=== PATIENT | male | born 1970 | race Caucasian/White ===

== ENCOUNTER 2016-09-07 21:39 | Emergency (ER) | payer MEDICARE ==
[~2016-09-07] VITALS: Ht 365.8 cm; Wt 92.1 kg
[~2016-09-07 21:39] MED LIST: ASPI325T8 PO; CARV20CP PO; DIAZ10TA PO; FLUT50DI; HYDR-2766 PO; ISOS30TA PO; LIDO700A4; METH10TA PO; MINO50CA21 PO; NITR0.4T; OMEG1CAP6; OMEP40CA5 PO; PROM25TA10; TEST200V4 IM; TOPI50TA38 PO; VENL75CA6 PO
[2016-09-07] MEDS ORDERED: 0.9 % SODIUM CHLORIDE 10 ML DISP.SYRIN. IV PRN (21:45)
[2016-09-07 22:10] LABS: BASO # 0.1 x10^3/uL (0.0-0.2); BASO % 1 % (0-3); EOS # 0.1 x10^3/uL (0.0-0.7); EOS % 1 % (0-3); HEMATOCRIT 45.9 % (39.0-53.0); HEMOGLOBIN 15.3 g/dL (13.0-17.5); LYMPH # 3.3 x10^3/uL (1.0-4.8); LYMPH % 27 % (24-48); MEAN CORPUSCULAR HEMOGLOBIN 30 pg (25-35); MEAN CORPUSCULAR HGB CONC 34 g/dL (31-37); MEAN CORPUSCULAR VOLUME 89 fL (79-100); MONO # 0.9 x10^3/uL (0.0-1.1); MONO % 7 % (0-9); NEUT % 64 % (31-73); PLATELET COUNT 312 x10^3/uL (140-400); RED BLOOD COUNT 5.14 x10^6/uL (4.30-5.70); WHITE BLOOD COUNT 12.4 x10^3/uL (4.0-11.0)
[2016-09-07] MEDS ORDERED: NITROGLYCERIN OINT 1 GM PACKET. TP ONE (22:15)
[2016-09-07] MEDS ORDERED: MORPHINE SULFATE 2 MG/ML DISP.SYRIN. IV ONE (22:15)
[2016-09-07] MEDS ORDERED: ASPIRIN 325 MG TABLET PO ONE (22:15)
--- NOTE | 2016-09-07 22:18 | PHYS DOC ---
Past History Past Medical History: CAD, High Cholesterol, Heart Disease, Hypertension, Other Additional Past Medical Histor: chronic back pain, non-hodgkin's lymphoma (dx 1997-remission since 1998) Past Surgical History: Tonsillectomy Additional Past Surgical Histo: cardiac cath, neck surgery; lymph node dissection Smoking: Cigarettes Social History Narrative: Adult General Chief Complaint Chief Complaint: CHEST PAIN HPI HPI Patient is a 46 year old male who presents with chest pain. 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 He became sweaty. It's sharp , burning, pressure that was a 10. He drove himself here. Pain is now an 8. No shortness of air. No nausea or vomiting. It is consistent with prior heart pain. He hasn't taken nitroglycerin for least a year. He continues to smoke tobacco, has hyperlipidemia but is able to take a statin due to an allergy. Took his 81 mg aspirin today. He was last seen by Dr. Ruggiero's answering service agent several months ago and has appointment this Thursday in the office. Review of Systems Review of Systems Constitutional: Denies fever or chills Eyes: Denies change in visual acuity, redness, or eye pain HENT: Denies nasal congestion or sore throat Respiratory: Denies cough or shortness of breath Cardiovascular: chest pain-see HPI GI: Denies abdominal pain, nausea, vomiting, bloody stools or diarrhea : Denies dysuria or hematuria Musculoskeletal: Denies back pain or joint pain Integument: Denies rash or skin lesions; diaphoretic Neurologic: Denies headache, focal weakness or sensory changes Endocrine: Denies polyuria or polydipsia Family History Family History Grandfather with heart disease Current Medications Current Medications Current Medications Medications (Trade) Dose Ordered Sig/Dori Start Time Stop Time Status Last Admin Dose Admin Aspirin (Shankar Aspirin) 325 mg 1X ONCE 09/07/16 22:15 09/07/16 22:16 Morphine Sulfate (Morphine 2mg Syringe) 2 mg 1X ONCE 09/07/16 22:15 09/07/16 22:16 Nitroglycerin (Nitro-Bid Oint) 1 inch 1X ONCE 09/07/16 22:15 09/07/16 22:16 Sodium Chloride (Normal Saline Flush) 10 ml QSHIFT PRN 09/07/16 21:45 Allergies Allergies Allergies Coded Allergies Type Severity Reaction Last Updated Verified Ycaures-Cjw-Fek Reductase Inhibitor Allergy Intermediate MUSCLE PAIN 09/07/16 Yes Physical Exam Physical Exam Constitutional: Well developed, well nourished, diaphoretic and anxious HENT: Normocephalic, atraumatic, bilateral external ears normal, oropharynx moist, no oral exudates, nose normal. Eyes: PERRLA, EOMI, conjunctiva normal, no discharge. Neck: Normal range of motion, no tenderness, supple, no stridor. Cardiovascular:Heart rate regular rhythm, tachycardic, no murmur Lungs & Thorax: Bilateral breath sounds clear to auscultation Abdomen: Bowel sounds normal, soft, no tenderness, no masses, no pulsatile masses. Skin: Warm, dry, no erythema, no rash. Back: No tenderness, no CVA tenderness. Extremities: No tenderness, no cyanosis, no clubbing, ROM intact, no edema. Neurologic: Alert and oriented X 3, normal motor function, normal sensory function, no focal deficits noted. Psychologic: Affect normal, judgement normal, mood normal. Current Patient Data Vital Signs BP 141/100; P 120; sat 97% room air 2210 PM: BP 120/77, sat 94% and P 94 after Nitropaste and Morphine Vital Signs Date Time Temp Pulse Resp B/P (MAP) Pulse Ox O2 Delivery O2 Flow Rate FiO2 09/07/16 22:06 110 141/100 09/07/16 22:05 20 97 Room Air 09/07/16 21:45 98.6 Lab Results Laboratory Tests Test 09/07/16 21:55 Bedside Troponin I 0.00 ng/ml Current Medications Medications (Trade) Dose Ordered Sig/Dori Route PRN Reason Start Time Stop Time Status Last Admin Dose Admin Aspirin (Shankar Aspirin) 325 mg 1X ONCE PO 09/07/16 22:15 09/07/16 22:16 Morphine Sulfate (Morphine 2mg Syringe) 2 mg 1X ONCE IV 09/07/16 22:15 09/07/16 22:16 Sodium Chloride (Normal Saline Flush) 10 ml QSHIFT PRN IV AFTER MEDS AND BLOOD DRAWS 09/07/16 21:45 Nitroglycerin (Nitro-Bid Oint) 1 inch 1X ONCE TP 09/07/16 22:15 09/07/16 22:16 Laboratory Tests Test 09/07/16 21:55 White Blood Count 12.4 x10^3/uL Red Blood Count 5.14 x10^6/uL Hemoglobin 15.3 g/dL Hematocrit 45.9 % Mean Corpuscular Volume 89 fL Mean Corpuscular Hemoglobin 30 pg Mean Corpuscular Hemoglobin Concent 34 g/dL Red Cell Distribution Width 15.0 % Platelet Count 312 x10^3/uL Neutrophils (%) (Auto) 64 % Lymphocytes (%) (Auto) 27 % Monocytes (%) (Auto) 7 % Eosinophils (%) (Auto) 1 % Basophils (%) (Auto) 1 % Neutrophils # (Auto) 8.0 x10^3uL Lymphocytes # (Auto) 3.3 x10^3/uL Monocytes # (Auto) 0.9 x10^3/uL Eosinophils # (Auto) 0.1 x10^3/uL Basophils # (Auto) 0.1 x10^3/uL Prothrombin Time 10.1 SEC Prothromb Time International Ratio 1.0 Activated Partial Thromboplast Time 24 SEC Sodium Level 144 mmol/L Potassium Level 3.6 mmol/L Chloride Level 104 mmol/L Carbon Dioxide Level 32 mmol/L Anion Gap 8 Blood Urea Nitrogen 7 mg/dL Creatinine 1.0 mg/dL Estimated GFR (Cockcroft-Gault) 80.4 BUN/Creatinine Ratio 7 Glucose Level 129 mg/dL Calcium Level 8.6 mg/dL Magnesium Level 1.8 mg/dL Total Bilirubin 0.4 mg/dL Aspartate Amino Transf (AST/SGOT) 17 U/L Alanine Aminotransferase (ALT/SGPT) 19 U/L Alkaline Phosphatase 65 U/L Creatine Kinase 110 U/L Creatine Kinase MB (Mass) 0.9 ng/mL Creatine Kinase MB Relative Index 0.8 % Bedside Troponin I 0.00 ng/ml Troponin I Quantitative < 0.017 ng/mL Total Protein 7.0 g/dL Albumin 3.6 g/dL Albumin/Globulin Ratio 1.1 Current Medications Medications (Trade) Dose Ordered Sig/Dori Route PRN Reason Start Time Stop Time Status Last Admin Dose Admin Aspirin (Shankar Aspirin) 325 mg 1X ONCE PO 09/07/16 22:15 09/07/16 22:16 DC 09/07/16 22:15 Morphine Sulfate (Morphine 2mg Syringe) 2 mg 1X ONCE IV 09/07/16 22:15 7/23/17 22:16 DC 09/07/16 22:05 Sodium Chloride (Normal Saline Flush) 10 ml QSHIFT PRN IV AFTER MEDS AND BLOOD DRAWS 09/07/16 21:45 Nitroglycerin (Nitro-Bid Oint) 1 inch 1X ONCE TP 09/07/16 22:15 09/07/16 22:16 DC 09/07/16 22:06 EKG EKG EKG by my interpretation performed at 2145 PM. Sinus tachycardia rate of 110. Nonspecific ST changes with old changes in inferior leads. Compared to EKG done here 10/02/10 where he had inferior STEMI Radiology/Procedures Radiology/Procedures Portable CXR: My interpretation he has enlarged cardiac silhouette. Normal mediastinum. No pleural effusions. No infiltrates. Course & Med Decision Making Course & Med Decision Making Pertinent Labs and Imaging studies reviewed. (See chart for details) Patient evaluated upon arrival. Concerned about ACS/STEMI. Aspirin 324, Nitropaste 1 inch placed to chest wall. Morphine IV. Oxygen placed. Initial EKG did not show ST elevation. 2210 PM: consulted his answering service agent, Dr Uribe field control inspector. No need to start lovenox/heparin or aggrenox at this time with initial normal trop. Admit to hospitalist and they will consult. NPO after midnight; admit to tele. Patient and request transfer and are aware of findings and need for admission 2225 PM: spoke w Hospitalist Dr Posada; accepted patient. Dr Ruggiero is out of town and will be back in am. Dr Mcledo field control inspector. Dragon Disclaimer Dragon Disclaimer This chart was dictated in whole or in part using Voice Recognition software in a busy, high-work load, and often noisy Emergency Department environment. It may contain unintended and wholly unrecognized errors or omissions. Departure Departure: Impression: Primary Impression: Acute coronary syndrome Additional Impressions: Tobacco consumption Hyperlipidemia Disposition: OTHER Condition: STABLE Referrals: CARINA GODIENZ APRN (PCP) Problem Qualifiers Additional Impressions: Hyperlipidemia Hyperlipidemia type: unspecified Qualified Codes: E78.5 - Hyperlipidemia, unspecified DECLAN RAMÍREZ MD Sep 07, 2016 22:18
[2016-09-07 22:30] LABS: ALBUMIN 3.6 g/dL (3.4-5.0); ALBUMIN/GLOBULIN RATIO 1.1 (1.0-1.7); CALCIUM 8.6 mg/dL (8.5-10.1); GFR 80.4; MAGNESIUM 1.8 mg/dL (1.8-2.4); POTASSIUM 3.6 mmol/L (3.5-5.1); TOTAL BILIRUBIN 0.4 mg/dL (0.2-1.0)
[2016-09-07 23:50] VITALS: BP 125/79
--- NOTE | 2016-09-08 06:01 | EKG ---
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
--- NOTE | 2016-09-08 08:12 | RAD ---
Portable chest, 09/07/2016: History: Chest pain Comparison is made to a study from 06/05/2006. The heart size and pulmonary vascularity are normal. No pulmonary infiltrates are seen. There is no evidence of pleural fluid. IMPRESSION: No acute cardiopulmonary abnormality is detected.
== END 2016-09-07 23:55 | disposition short-term general hospital (02) ==
LOC: ER 21:39
DX: I24.9 Acute ischemic heart disease, unspecified (principal); I10 Essential (primary) hypertension; E78.5 Hyperlipidemia, unspecified; I25.10 Atherosclerotic heart disease of native coronary artery without angina pectoris; E78.00 Pure hypercholesterolemia, unspecified; G89.29 Other chronic pain; F17.210 Nicotine dependence, cigarettes, uncomplicated; Z85.72 Personal history of non-Hodgkin lymphomas; Z88.8 Allergy status to other drugs, medicaments and biological substances
CPT/HCPCS: 36415; 71010; 80053; 82553; 83735; 84484; 85027; 85610; 85730; 93005; 96374; 99285; J2270